=== PATIENT | male | born 1955 | race Caucasian/White ===

== ENCOUNTER 2021-06-02 06:28 | Day surgery (SDC) | payer MEDICARE, OTHER ==
[~2021-06-02 06:28] MED LIST: Albuterol 0.083% 2.5 MG/3 ML Neb Soln NEB ONE; Lactated Ringers 1,000 ML IV SCH; Lidocaine 1%/Sod Bicarbonate in NS 8.4% 1 ML Syringe IDERM PRN; Sodium Chloride 0.9% 10 ML Syringe FLUSH PRN
[2021-06-02] MEDS ORDERED: Albuterol 0.083% 2.5 MG/3 ML Neb Soln NEB SCH ×2 (07:11→11:08)
--- NOTE | 2021-06-02 07:14 | PCM.PREANE ---
Preanesthetic Assessment - Anesthesia/Transfusion/Family Hx Anesthesia History: Prior Anesthesia Without Reaction Family History of Anesthesia Reaction: No Transfusion History: No Prior Transfusion(s) - Review of Systems General: No Symptoms Pulmonary: Shortness of Breath (with activity), Other (current smoker, less than a pack per day) Cardiovascular: No Symptoms Gastrointestinal: Other (occassional reflux, food related) Neurological: No Symptoms Other: Reports: None - Physical Assessment NPO Status Date: 06/01/21 NPO Status Time: 22:00 Weight: 81 kg ASA Class: 2 Mental Status: Alert & Oriented x3 Airway Class: Mallampati = 2 Dentition: Reports: Dentures, Edentulous Thyro-Mental Finger Breadths: 3 Mouth Opening Finger Breadths: 3 ROM/Head Extension: Full Lungs: Clear to Auscultation (no wheezed heard this am. ), Normal Respiratory Effort Cardiovascular: Regular Rate, Regular Rhythm - Allergies Allergies/Adverse Reactions: Allergies Allergy/AdvReac Type Severity Reaction Status Date / Time No Known Allergies Allergy Verified 06/01/21 09:18 - Blood Blood Available: No Product(s) Available: None - Anesthesia Plan Pre-Op Medication Ordered: None - Acknowledgements Anesthesia Type Planned: General Anesthesia Pt an Appropriate Candidate for the Planned Anesthesia: Yes Alternatives and Risks of Anesthesia Discussed w Pt/Guardian: Yes Pt/Guardian Understands and Agrees with Anesthesia Plan: Yes PreAnesthesia Questionnaire - HOME MEDS Home Medications: Home Meds Acetaminophen [Tylenol] 650 mg PO Q6H PRN 06/01/21 [History] Albuterol Sulfate [Albuterol Sulfate Hfa] 2 puff INH QID PRN 06/01/21 [History] Cannabidiol (Cbd) Extract [CBD Oil] 1 dose PO ASDIRECTED 06/01/21 [History] Omeprazole Magnesium [Prilosec Otc] 20 mg PO DAILY 06/01/21 [History] Umeclidinium Brm/Vilanterol Tr [Anoro Ellipta 62.5-25 MCG] 1 puff INH DAILY 06/01/21 [History] - CURRENT (IN HOUSE) MEDS Current Meds: Current Medications Lactated Ringer's (Ringers, Lactated) 1,000 mls @ 125 mls/hr IV ASDIRECTED KETTY Stop: 06/02/21 23:00 Lidocaine/Sodium Bicarbonate (Lidocaine 1%/Sod Bicarbonate In Ns 8.4% 1 Ml Syringe) 0.25 ml IDERM ONETIME PRN PRN Reason: Prior to IV Start Stop: 06/02/21 18:00 Sodium Chloride (Sodium Chloride 0.9% 10 Ml Syringe) 10 ml FLUSH ASDIRECTED PRN PRN Reason: Keep Vein Open Stop: 06/02/21 18:00 Discontinued Medications Albuterol (Albuterol 0.083% 2.5 Mg/3 Ml Neb Soln) 2.5 mg NEB ONETIME ONE Stop: 06/02/21 00:02
[2021-06-02] MEDS ORDERED: Ondansetron 4 MG/2 ML SDV ONE (07:25)
[2021-06-02] MEDS ORDERED: Propofol 200 MG/20 ML SDV ONE ×2 (07:25→09:09)
[2021-06-02] MEDS ORDERED: Dexamethasone 4 MG/ML 5 ML MDV ONE (07:25)
[2021-06-02] MEDS ORDERED: Rocuronium 50 MG/5 ML Vial ONE (07:25)
[2021-06-02] MEDS ORDERED: Lactated Ringers 1,000 ML ONE (07:25)
[2021-06-02] MEDS ORDERED: Midazolam 1 MG/ML 2 ML SDV ONE (07:25)
[2021-06-02] MEDS ORDERED: ceFAZolin 1 GM Vial ONE (07:26)
[2021-06-02] MEDS ORDERED: fentaNYL 250 MCG/5 ML SDV ONE (07:26)
[2021-06-02] MEDS ORDERED: Lidocaine 1% 4 ML ONE (07:26)
[2021-06-02] MEDS ORDERED: Bupivacaine 0.5% 30 ML SDV ONE ×2 (07:35→09:35)
--- NOTE | 2021-06-02 07:44 | CR ---
Chest: Portable view of the chest was obtained. Comparison: No prior chest imaging is available. Lung markings are mildly increased. Difficult to exclude mild bronchitis. Lungs otherwise are clear. Heart size and mediastinum are normal. Bony structures show nothing acute for the patient's age. Impression: 1. Possible mild bronchitis. Please correlate with the patient's symptoms. 2. Nothing acute is otherwise seen on portable chest x-ray. Diagnostic code #3
--- NOTE | 2021-06-02 07:56 | PCM.SN.2 ---
#1 Interpretation EKG Date: 06/02/21 Time: 07:01 Rhythm: NSR Rate (Beats/Min): 63 [place]: Normal P-Wave: Present QRS: Normal ST-T: Normal QT: Normal
[2021-06-02] MEDS ORDERED: HYDROmorphone 0.5 MG/0.5 ML Syringe IVPUSH PRN (08:51)
[2021-06-02] MEDS ORDERED: Ondansetron 4 MG/2 ML SDV IVPUSH PRN (08:51)
[2021-06-02] MEDS ORDERED: fentaNYL 100 MCG/2 ML SDV IVPUSH PRN (08:51)
[2021-06-02] MEDS ORDERED: Lidocaine 1% 2 ML ONE ×2 (08:52→09:30)
--- NOTE | 2021-06-02 10:44 | PCM.POSTAN ---
POST ANESTHESIA ASSESSMENT - MENTAL STATUS Mental Status: Alert, Oriented - VITAL SIGNS Vital Signs: Last Vital Signs Temp 37.1 C 06/02/21 06:50 Pulse 66 06/02/21 06:50 Resp 16 06/02/21 06:50 BP 128/81 06/02/21 06:50 Pulse Ox 99 06/02/21 06:50 - RESPIRATORY Respiratory Status: Respiratory Rate WNL, Airway Patent, O2 Saturation Stable, Supplemental Oxygen - CARDIOVASCULAR CV Status: Pulse Rate WNL, Blood Pressure Stable - GASTROINTESTINAL GI Status: No Symptoms - PAIN Pain Score: 0 - POST OP HYDRATION Hydration Status: Adequate & Stable
--- NOTE | 2021-06-02 11:50 | PCM48HPAN ---
Post Anesthesia Note - EVALUATION WITHIN 48HRS OF ANESTHETIC Vital Signs in Normal Range: Yes Patient Participated in Evaluation: Yes Respiratory Function Stable: Yes Airway Patent: Yes Cardiovascular Function Stable: Yes Hydration Status Stable: Yes Pain Control Satisfactory: Yes Nausea and Vomiting Control Satisfactory: Yes Mental Status Recovered: Yes Vital Signs: Last Vital Signs Temp 36.8 C 06/02/21 11:20 Pulse 60 06/02/21 11:20 Resp 11 L 06/02/21 11:20 BP 122/69 06/02/21 11:20 Pulse Ox 100 06/02/21 11:20
--- NOTE | 2021-06-02 12:40 | OR ---
DATE OF OPERATION: 06/02/2021 SURGEON: Gurjit Mg MD PREOPERATIVE DIAGNOSIS: Incarcerated umbilical hernia. POSTOPERATIVE DIAGNOSIS: Incarcerated umbilical hernia. OPERATION PERFORMED: Laparoscopic umbilical hernia repair with mesh. ESTIMATED BLOOD LOSS: Minimal. ANESTHESIA: General with local anesthetic consisting of 0.5% bupivacaine. COMPLICATIONS: None. MESH: 11.[address] circular mesh ESTIMATED BLOOD LOSS: About 5 mL. RATE REVIEWER: Need for assistance: A skilled assistance of nurse practitioner Elizabeth Johnson CNP, was provided today. She was needed to assist with patient positioning, holding of retractor and camera during the operation, and incision closure at the end of the operation. INDICATIONS AND CONSENT: Mr. Beltran is 66, has COPD. The patient had been suffering from incarcerated umbilical hernia for a long time. I evaluated the patient in clinic and I recommended we proceed with the repair. The patient underwent preop optimization and then presented for surgery. We did discuss risks, benefits, and alternative to the procedure and an informed consent was obtained. I recommended laparoscopic procedure for this patient to minimize the risk for wound complications as well as infection. DESCRIPTION OF PROCEDURE: The patient was taken to the operating room, placed in supine position. SCDs were placed. The patient was padded appropriately. A Jian Hugger was placed. Preop antibiotics were given. A time-out was performed. Then, the abdomen was prepped and draped in the usual sterile fashion. Then, we began the procedure by injecting local anesthetic in the [place] point in the left upper quadrant. A stab incision was made and a Veress needle was introduced into the abdomen. The abdomen was insufflated to 15 mmHg. Then, a 5 mm trocar was placed into the left lateral abdomen under visualization of 5-0 scope. A 5 mm trocar was placed. No injuries to the Veress needle or trocar insertion. Two additional 5 mm trocars were placed in the left lateral abdomen as well. Upon inspection of the abdomen, there was clearly omentum going into the umbilical hernia that was incarcerated. Using electrosurgery and retractors, the omentum was freed and detached from the hernia sac. Then hernia sac contents which consisted of preperitoneal fat were taken down and removed from the stomach from the abdomen through the 5 mm trocar site. Then, at this point, the hernia defect was clear and it was measured to about 3 cm in diameter at the greatest dimension. The measurement was done by passing a needle from the skin into the abdomen and estimating the size from the outside while the patient was insufflated. Once this was done, a decision was made to go ahead and perform a fascial closure at hernia defect. We used one 0 PDS and Osito-Scot device to place two figure- of-eight stitches to close the fascial defect. Then, an 11.4 cm diameter of the Ventralex ST mesh was brought, opened up. The diameter around the hernia defect was marked on the skin level and 2-0 Prolene stay stitches were placed around the four quadrants of the mesh and additional 5 mm trocar was placed on the right lateral abdomen and a grasper was placed through this new trocar across the abdomen to another trocar on the left lateral abdomen and then the mesh was passed into the abdomen through one of the 5 mm trocar sites. Once he was oriented properly so that the coated side is facing the bowel and the stab incisions were made around the four quadrants at the skin level and the anchoring stitches of 2-0 Prolene were brought out transabdominally through stab incisions that were made and we used Osito-Scot device to do this. Prior to doing this, the abdominal wall was cleared by taking down about 3 cm of the falciform ligament to allow the mesh to lay flat against the abdominal wall. Then, a small amount of fat inferiorly was also taken down from the abdominal wall. Once the anchoring stitches were taken out transabdominally, the abdomen was desufflated to 8 mmHg and mesh was tied and then the anchoring stitches were tied allowing the mesh to stay tightly against the abdominal wall. Then, a SorbaFix was used to place absorbable tackers around the mesh creating a double crown configuration. Mesh was visualized to be lying flat against the abdominal wall. We injected additional 30 mm of 5% Bupivacaine into the abdominal wall into the peritoneum to allow for analgesia. Then, once everything was done, we made sure that the rest of the abdomen was okay. All the tissue from the hernia contents were taken out and one of the lateral 5 mm trocars that was used to remove the hernia contents was closed at the fascial level with 0 Vicryl stitches using Osito- Scot device. Then, the abdomen was desufflated at this point, and all incision sites and trocar sites were closed with 4-0 Monocryl. Stab incisions were closed with Dermabond. The patient will be allowed to return home and avoid lifting more than 20 pounds for 4 to 6 weeks. The patient will see me in clinic in 2 weeks. MMODAL /[id number] MTDD
== END 2021-06-02 12:50 | disposition home or self-care (01) ==
LOC: JD.SDS 06:28
PROVIDERS: ATTEND Surgery
DX: K42.0 Umbilical hernia with obstruction, without gangrene (principal); J44.9 Chronic obstructive pulmonary disease, unspecified; E78.5 Hyperlipidemia, unspecified; I11.0 Hypertensive heart disease with heart failure; I50.9 Heart failure, unspecified; I25.2 Old myocardial infarction; E66.9 Obesity, unspecified; M81.0 Age-related osteoporosis without current pathological fracture; G47.30 Sleep apnea, unspecified; F17.210 Nicotine dependence, cigarettes, uncomplicated; Z90.49 Acquired absence of other specified parts of digestive tract; Z98.890 Other specified postprocedural states; Z79.899 Other long term (current) drug therapy
CPT/HCPCS: 36415; 49653; 71045; 80053; 85025; C1781; J0690; J1100; J2250; J2405; J2704; J2710; J3010; J3490; J7120; 00790